=== PATIENT | female | born 1935 | race Caucasian/White ===

== ENCOUNTER 2023-03-27 11:53 | Emergency (ER) | payer MEDICARE, SELFPAY ==
--- NOTE | ~2023-03-27 | XR_ITS ---
EXAMINATION: XR KNEE, RIGHT CLINICAL INFORMATION: Pain, swelling COMPARISON: None available. TECHNIQUE: Four views of the right knee. FINDINGS: No fracture or joint effusion. Alignment is anatomic. There is moderate narrowing of the medial joint compartment and marked narrowing of the patellofemoral joint compartment. Tricompartment marginal osteophytes are seen. No abnormal soft tissue calcification. XR/XR knee RT 4V IMPRESSION: 1. No acute bony abnormality. 2. Moderate to marked osteoarthritis.
[2023-03-27 12:11] VITALS: BP 144/70; PULSE 87; RESP 18; O2SAT 95; BMI 24.6
--- NOTE | 2023-03-27 12:11 | ED_ITS ---
HPI - Extremity Injury (Lower) General Chief Complaint: Extremity Injury, Lower Stated Complaint: Pain right knee Time Seen by Provider: 03/27/23 12:20 Source: patient Mode of arrival: ambulatory Limitations: no limitations History of Present Illness HPI Narrative: This is an 87-year-old female history of hypertension, hypothyroidism, congestive heart failure presenting with atraumatic right knee pain progressive ly worsening over the past 2 weeks. Patient reports that the right knee appears swollen and is worse with movement better at rest. Weightbearing also seems to make it worse. Patient denies any falls, trauma, calf pain. Denies fevers, chills, numbness, tingling. No previous issues with this in the past. Related Data Home Medications Medication Instructions Recorded Confirmed atorvastatin 20 mg tablet 1 tab PO DAILY 04/26/21 04/26/21 benzonatate 200 mg capsule 200 mg PO TID 04/26/21 04/26/21 cetirizine 10 mg tablet 10 mg PO DAILY 04/26/21 04/26/21 levothyroxine 125 mcg tablet 1 tab PO DAILY@0600 04/26/21 04/26/21 losartan 50 mg tablet 1 tab PO BEDTIME 04/26/21 04/26/21 niacin 500 mg tablet 500 mg PO DAILY 04/26/21 04/26/21 omega 8-phs-nmi-fish oil 1,200 mg 1 cap PO DAILY 04/26/21 04/26/21 (144 mg-216 mg) capsule (Fish Oil) Previous Rx's Medication Instructions Recorded azithromycin 250 mg tablet 250 mg PO DAILY 4 days #4 tabs 04/26/21 guaifenesin 600 mg tablet, 600 mg PO BID 5 days #10 tabs 04/26/21 extended release 12 hr (Mucinex) prednisone 20 mg tablet 20 mg PO DAILY 5 days #5 tabs 03/27/23 Allergies Allergy/AdvReac Type Severity Reaction Status Date / Time No Known Allergies Allergy Unverified 12/17/19 15:31 Review of Systems Review of Systems: Constitutional : No Weight loss, No Fever, No Chills, No Fatigue, No Malaise ENT/Mouth : No sore throat, No Rhinorrhea Eyes: No Eye Pain, No Swelling, No Redness Cardiovascular : No Chest Pain, No SOB, No Dyspnea on Exertion, No Orthopnea, No Edema, No Palpitations Respiratory : No Cough, No Sputum, No Wheezing Gastrointestinal : No Nausea, No Vomiting, No Diarrhea, No Constipation, No abdominal Pain, No Hematochezia, No Melena Genitourinary : No Dysuria, No Urinary Frequency, No Hematuria, Musculoskeletal : + joint pain, No Myalgias, + Joint Swelling Skin : No Skin Lesions, No rash Neuro : No Weakness, No Numbness, No Dizziness, No Headache Psych : No Anxiety/Panic, No Depression All other systems reviewed and are negative Yes all other systems are reviewed and are negative [facility], [facility] Past Medical History Attestation statement: The following information was validated with the patient. Source: old records reviewed and nursing notes reviewed Medical History Congestive heart failure HTN (hypertension) Hypothyroid Surgical History H/O: hysterectomy Social History Social History Alcohol intake: current Alcohol intake frequency: 0-2 drinks per day Alcohol type: wine Patient Tobacco Use Status: Former Tobacco user Advance Directives: Yes Advance Directives Information Provided: No Advance Directives on File: No service: No Current occupational status: retired Physical Exam Vital Signs: Vital Signs: Last Vital Signs Pulse 87 03/27/23 12:11 Resp 18 03/27/23 12:11 BP 144/70 H 03/27/23 12:11 Pulse Ox 95 03/27/23 12:11 O2 Del Method Room Air 03/27/23 12:11 BMI result Body Mass Index 24.6 vss Appearance: Alert.? Oriented X3.? No acute distress.? Head: Normocephalic, atraumatic, no step-offs or deformities Eyes: Pupils equal, round and reactive to light.? CVS: Normal heart rate and rhythm.? Pulses normal.? Respiratory: No respiratory distress.? Breath sounds normal.? Abdomen: Soft and nontender.? Skin: Skin warm and dry.? Normal skin color.? Normal skin turgor.? Extremities: No lower extremity edema.? No calf ttp, negative ajit . 5/5 strength to bilateral upper and lower extremities + full range of motion to bilateral knees however slight discomfort with range of motion of right knee. Normal sensation distally. Capillary refill less than 2 seconds to bilateral lower extremities. No footdrop. 2+ dorsalis pedis, anterior tibialis posterior tibialis and popliteal pulses equal bilateral. Slight edema overlying the right knee. No overlying erythema or warmth Ambulating with steady gait. Back: No midline tenderness, no C-spine tenderness, full range of motion, no CVA tenderness bilaterally Neuro: Oriented X 3.? No motor deficit.? No sensory deficit. CN 2-12 intact Course Course Course Narrative: RME: 87yoF w/ PMHx CHF, HTN, Hypothyoid c/o R knee pain x2 weeks. No known inj ury. no falls or calf pain +swelling. no erythema/warmth. NV intact distally XRs ordered Full HPI, ROS and PE to be performed by primary ED provider. Reevaluation(s) Reevaluation #1: Patient feeling much better. Ambulatory. X-ray still pending. To be discharged home on prednisone. Educated patient on diagnosis and treatment plan, answered all question, patient verbalizes understanding. At this time patient will be discharged home, advised to return with new or worsening symptoms. Educated on worrisome signs and symptoms and when to return. At this time I feel comfortable discharge home. Time: 14:08 Medications Administered Discontinued Medications Generic Name Dose Route Start Last Admin Trade Name Drewq PRN Reason Stop Dose Admin Morphine Sulfate 15 mg 03/27/23 12:33 03/27/23 12:55 Morphine Sulfate Immed Release 15 Mg Tablet PO 03/27/23 12:34 15 mg ONCE ONE Administration Medical Decision Making Medical Decision Making [facility] Narrative: 79-year-old female presents with right knee pain and swelling, atraumatic in nature x2 weeks progressively worsening Physical exam significant for Capillary refill less than 2 seconds to bilateral lower extremities. No footdrop. 2+ dorsalis pedis, anterior tibialis posterior tibialis and popliteal pulses equal bilateral. Slight edema overlying the right knee. Ambulating with steady gait. This is likely inflammatory arthritis versus gout versus pseudogout. Unlikely septic joint, neurovascular compromise, threat to [place], arterial or venous occlusion, no signs of fracture dislocation. Plan imaging. Differential Diagnosis Differential Diagnoses: The differential diagnosis associated with the presentation includes This is likely inflammatory arthritis versus gout versus pseudogout. Unlikely septic joint, neurovascular compromise, threat to [place], arterial or venous occlusion, no signs of fracture dislocation. Admission/Observation Consideration of admission/observation: Escalation of care including admission/observation considered Independent Interpretation I performed an independent interpretation of an: Plain X-Ray Radiology Impression Discussion of test interpretation with radiology: I have reviewed the radiologist's reading. Prescription Management I considered prescription management with: Other (prednisone ) Critical Care Time Critical Care Time Critical Care Time: No Discharge Plan Discharge Clinical Impression: Knee pain, right Patient Disposition: Home, Self-Care Instructions: Knee Pain (ED), R.I.C.E. Treatment (ED) Additional Instructions: Take your medications as prescribed. If you were prescribed antibiotics today, it is important that you take your medication to their entirety, do not skip any doses, do not finish them early. Follow-up with your primary care provider this week. Return to the emergency department with new or worsening symptoms. Such as fevers, chills, chest pain, shortness of breath, nausea, vomiting, dizziness, headache, vision changes, lethargy In case of emergency call 911 Follow-up with the orthopedic Take prednisone as prescribed Follow rice instructions Wear juan r wrap as discussed do not wrap too tight. take off at night Prescriptions: New prednisone 20 mg tablet 20 mg PO DAILY 5 Days Qty: 5 0RF No Action losartan 50 mg tablet 1 tab PO BEDTIME atorvastatin 20 mg tablet 1 tab PO DAILY cetirizine 10 mg Tablet 10 mg PO DAILY benzonatate 200 mg Capsule 200 mg PO TID levothyroxine 125 mcg tablet 1 tab PO DAILY@0600 omega 5-vmu-lhz-fish oil [Fish Oil] 1,200 (144-216) mg Capsule 1 cap PO DAILY niacin 500 mg Tablet 500 mg PO DAILY guaifenesin [Mucinex] 600 mg Tablet Extended Release 12hr 600 mg PO BID 5 Days Qty: 10 0RF azithromycin 250 mg tablet 250 mg PO DAILY 4 Days Qty: 4 0RF Referrals: [facility] [Provider Group] - 1 week Judit Amezcua MD [Primary Care Provider] - 2 days
[2023-03-27] MEDS: Morphine Sulfate Immed Release 15 MG TABLET PO (12:55)
== END 2023-03-27 14:36 | disposition home or self-care (01) ==
PROVIDERS: Emergency Provider Emergency Medicine Emergency Medical Services; PCP Internal Medicine
DX: M25.561 Pain in right knee (principal); I11.0 Hypertensive heart disease with heart failure; I50.9 Heart failure, unspecified
CPT/HCPCS: 73564; 99283

== ENCOUNTER 2023-04-26 10:26 | Outpatient (REF) | payer MEDICARE, SELFPAY ==
--- NOTE | ~2023-04-26 | XR_ITS ---
EXAMINATION: XR KNEE AP STANDING, BILATERAL XR KNEE, RIGHT CLINICAL INFORMATION: Pain in right knee. COMPARISON: None available. TECHNIQUE: AP bilateral standing view of the knees was obtained. [place] view right knee. FINDINGS: Single AP view of the left knee demonstrates medial joint space scarring, moderate, with medial marginal osteophytes. Right Knee: Moderate narrowing of the medial and patellofemoral joints with moderate hypertrophic changes. XR/XR knee standing BI IMPRESSION: Moderate degenerative changes bilateral medial compartments, right greater than left.
--- NOTE | ~2023-04-26 | XR_ITS ---
EXAMINATION: XR KNEE AP STANDING, BILATERAL XR KNEE, RIGHT CLINICAL INFORMATION: Pain in right knee. COMPARISON: None available. TECHNIQUE: AP bilateral standing view of the knees was obtained. [place] view right knee. FINDINGS: Single AP view of the left knee demonstrates medial joint space scarring, moderate, with medial marginal osteophytes. Right Knee: Moderate narrowing of the medial and patellofemoral joints with moderate hypertrophic changes. XR/XR knee RT 1V IMPRESSION: Moderate degenerative changes bilateral medial compartments, right greater than left.
== END 2023-04-26 10:27 | disposition home or self-care (01) ==
LOC: HO.HOSX 10:26
PROVIDERS: Visit Provider Physician Assistant
DX: M17.11 Unilateral primary osteoarthritis, right knee (principal); M25.562 Pain in left knee
CPT/HCPCS: 20610; 73560; 73565; 99202; J1040

== ENCOUNTER 2023-04-26 10:54 | Outpatient (AMB) | payer MEDICARE, SELFPAY ==
--- NOTE | 2023-04-26 11:07 | A.OFFVIS_ITS ---
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 Patient report ongoing pain that has been present for a while, no other tx. Denies injury. She recently presented [place] [facility] due to her pain and not able to sleep, xrays were taken and referred to orthopedics. States constant pain at the anterior aspect of knee. She would like to discuss having a cortisone injection. 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 She was seen at ED due to her throbbing pain at night where x- rays were performed and she was referred to our office. She currently states she has constant pain at the anterior aspect of her knee which is aggravated with bending, getting up from a sitting position, and at night. She denies any crunching or grinding. She uses lidocaine patches for her pain. She denies any injury and has not had any previous treatment. She has not had tried injection for her pain. She would like to discuss about having an injection. [facility] Medical History Congestive heart failure HTN (hypertension) Hypothyroid Surgical History H/O: hysterectomy Social History Alcohol intake: current Alcohol intake frequency: 0-2 drinks per day Alcohol type: wine Patient Tobacco Use Status: Former Tobacco user service: No Current occupational status: retired Review of Systems Const All systems reviewed & are unremarkable except as noted in HPI and below Physical Exam Vital Signs: BMI result Body Mass Index 24.5 Const General: cooperative, healthy appearing, comfortable, no acute distress, well developed and alert Orientation/consciousness: patient oriented x3 HEENT Head: Yes normal to inspection, Yes normocephalic and Yes atraumatic Eyes General: appearance normal, both eyes and all related structures Resp Effort & Inspection: normal respiratory effort and able to speak in complete sentences Cardio Rate: regular rate Peripheral pulses: Peripheral pulses 2+ throughout GI Palpation (GI): Soft to palpation Skin Lesions: no lesions Rashes: no rashes Neuro General: patient oriented x3 Extrem Other: Right knee: Skin intact, no erythema or joint effusion. Tenderness along the medial joint line. Full ROM with crepitus. Negative Delvis?s. No ligamentous laxity. NVI. Office Procedures Joint Injection/Drain Joint Injection/Drain Primary Site: right knee Prep: site was prepped using aseptic technique, ethochloride spray was applied and injection warnings given Injected: 80 mg of, DepoMedrol, with 8 mL of, 1% plain lidocaine and in the joint Approach Used: anterolateral Procedure: The patient tolerated the procedure well and there was some relief with the local anesthesia Coding 83993 - Glenohumeral/Tronchanteric Bursa/Intraarticular Procedure code (CPT) selection complete Results Reviewed Results Reviewed: Xrays were obtained in the office today and personally reviewed by me of the right knee show medial and PF oa Assessment & Plan Assessment & Plan (1) Osteoarthritis of right knee: Code(s): M17.11 - Unilateral primary osteoarthritis, right knee Qualifiers: Osteoarthritis type: primary Qualified Code(s): M17.11 - Unilateral primary osteoarthritis, right knee Plan We discussed options today which include steroid injection. They did consent to move forward with the right knee injection, which was tolerated well. I recommended rest, ice and elevation and OTC anti-inflammatories PRN for discomfort. If symptoms persist or worsens over the next 6-8 weeks, patient will contact the office, otherwise follow-up as needed. Orders: Orders XR knee RT 1V Today M25.561 - Pain in right knee XR knee standing BI Today M25.561 - Pain in right knee, M25.562 - Pain in left knee Patient Instructions: Scribed for Merlene Crowley PA-C, by Justen Haynes medical supervisor, on 04/26/2023 at 11:00 AM EST. IMerlene PA-C, have personally reviewed and agree with the information entered by the scribe. Coding Level of Care Code New Pt Level 3 (76823) Diagnoses Primary osteoarthritis of right knee M17.11 Osteoarthritis type: primary CPT Codes Coding - Joint 7: 58417 - Glenohumeral/Tronchanteric Bursa/Intraarticular ([id number])
[2023-04-26 11:16] VITALS: BMI 24.5
== END 2023-04-26 11:58 | disposition home or self-care (01) ==
PROVIDERS: PCP Internal Medicine; Visit Provider Physician Assistant
DX: M17.11 Unilateral primary osteoarthritis, right knee (principal)
CPT/HCPCS: 20610; 99203